=== PATIENT | female | born 2005 | race Caucasian/White ===

== ENCOUNTER 2025-07-09 06:28 | Outpatient (REF) | payer BC, SELFPAY ==
--- NOTE | ~2025-07-09 | US_ITS ---
EXAMINATION: US PELVIS TRANSABDOMINAL AND TRANSVAGINAL HISTORY: PELVIC PAIN COMPARISON: There are no prior studies available for comparison. TECHNIQUE: Transabdominal and endovaginal real-time 2D roldan-scale ultrasound was performed. FINDINGS: Uterus: The uterus is normal in size, measuring 7.7 x 3.9 x 5.3 cm. Myometrium has a normal echotexture. No fibroids are identified. Endometrium: The endometrial stripe measures 3 mm in thickness. An IUD is noted in expected position in the endometrial cavity. Right ovary: The right ovary measures 3.0 x 1.6 x 2.6 cm. The right ovary is normal in size and echotexture. Left ovary: The left ovary measures 2.4 x 1.5 x 1.3 cm. The left ovary is normal in size and echotexture. Pelvic fluid: none. US/US pelvic and transvaginal IMPRESSION: Unremarkable pelvic ultrasound. IUD in expected position in the endometrial cavity. Electronically signed by: Kvng Lemus MD 07/09/2025 12:39 PM EDT
--- OUTSIDE RECORDS SUMMARY | 2025-07-09 06:35 | XMS_ITS | Clinical Summary ---
Author Organization Formerly [facility] Address [address] [place] [address] Care Team Providers Care Insulation Extruder Operator Name Role Phone Elie Rivera MD Primary Care Provider [phone] Allergies No known active allergies Medications desogestrel-ethi nyl estradiol (Apri) 0.15-30 MG-MCG tablet Take 1 tablet by mouth 1 (one) time each day. 10/03/2020 Active Apri 0.15-30 MG-MCG tablet 08/12/2021 Activ e Active Problems No known active problems Encounters Date Type Department Care Team Description 04/16/2025 Telephone [facility] [address] [place] [id number] Evan Mayes PA 04/14/2025 Results Follow-Up [facility] [address] [place] [address] Tanja Moss PA Wound culture 04/12/2025 9:45 AM EDT Office Visit [facility] [address] [place] [address] Harpreet Brumfield, ERUM Blister (nonthermal), left thigh, initial encounter (Primary Dx) from Last 3 Months Family History Medical History Relation Comments No Known Problems Father No Known Problems Mother Relation Status Comments Father Alive Mother Alive Social History Tobacco Use Types Packs/Day Years Used Date Smoking Tobacco: Never Smokeless Tobacco: Never Tobacco Cessation:Counseling Given: Not Answered Alcohol Use Standard Drinks/Week Comments Yes 0 (1 standard drink = 0.6 oz pur e alcohol) occasional Comments No Sex and Gender Information Value Date Recorded Sex Assigned at Not on file Legal Sex Female 11:57 AM EST Gender Identity Not on file Sexual Orientation Not on file Last Filed Vital Signs Vital Sign Reading Time Taken Comments Blood Pressure 117/78 04/12/2025 9:55 AM EDT Pulse 77 04/12/2025 9:55 AM EDT Temperature 36.7 C (98.1 F) 04/12/2025 9:55 AM EDT Respiratory Rate 18 04/12/2025 9:55 AM EDT Oxygen Saturation 99% 04/12/2025 9:55 AM EDT Inhaled Oxygen Concentration - - Weight 70.3 kg (155 lb) 08/20/2021 9:36 AM EST Height - - Body Mass Index - - Plan of Treatment Health Maintenance Due Date Last Done Comments Hepatitis C Screening 2004 HIV Screening 2019 COVID-19 Vaccine ( season) 2025 06/10/2022, 09/17/2021, 02/06/2021, Additional history exists Influenza Vaccine (#1) 2025 , 06/10/2022, 06/04/2021, Additional history exists Annual Wellness Visit 08/07/2025 08/07/2024 , 08/03/2023, 06/10/2022, Additional history exists Chlamydia Screening 08/07/2025 08/07/2024, 08/03/2023, 06/04/2021 DTaP,Tdap,and Td Vaccines (7 - Td or Tdap) 03/04/2026 03/04/2016, 08/04/2009, 01/26/2006, Additional history exists Hepatitis B Vaccines Discontinued 01/25/2005, 2004, 2004 Pneumococcal Vaccine: Pediatrics (0 to 5 Years) and At-Risk Patients (6 to 64 Years) Aged Out 07/12/2005, 01/25/2005, 2004, Additional history exists No longer eligible based on patient's age to complete this topic HIB Vaccines Discontinued 09/22/2005, 01/10, 2004, Additional history exists MMR Vaccines Discontinued 08/04/2009, 09/22/2005 Varicella Vaccines Discontinued 08/04/2009, 07/12/2005 Hepatitis A Vaccines Discontinued 07/22/2015, 01/11/20 15 HPV Vaccines Completed 10/09/2018, 02/15/2018 Meningococcal Vaccine Completed 09/21/2022 , 06/10/2022, 06/04/2021, Additional history exists Procedures Procedure Name Priority Date/Time Associated Diagnosis Comments WOUND CULTURE Routine 04/12/2025 10:43 AM EDT from Last 3 Months Results * (ABNORMAL) Wound culture (04/12/2025 10:43 AM EDT) Wound Culture Rare skin dmitry 2024 7:55 AM EDT [facility] Wound Culture Rare Staphylococcus aureus(A) SAQIB 04/15/2025 7:55 AM EDT [facility] Gram Stain Result No WBCs 04/15/2025 7:55 AM EDT [facility] Gram Stain Result No Epithelial cells 04/15/2025 7:55 AM EDT [facility] Gram Stain Result No Organisms seen 04/15/2025 7:55 AM EDT [facility] Swab Structure of left thigh / Unknown Non-blood Collection / Unknown 04/12/2025 10:43 AM EDT 04/12/2025 2:16 PM EDT Narrative Organism Antibiotic Method Susceptibility Staphylococcus aureus Ciprofloxacin SAQIB <=0.5 ug/ml: Susceptible Staphylococcus aureus Clindamycin SAQIB <=0.25 ug/ml: Susceptible Staphylococcus aureus Erythromycin SAQIB <=0.25 ug/ml: Susceptible Staphylococcus aureus Gentamicin SAQIB <=0.5 ug/ml: Susceptible Staphylococcus aureus Inducible Clindamy humble Resistance SAQIB Negative ug/ml Staphylococcus aureus Levofloxacin SAQIB 0.25 ug/ml: Susceptible Staphylococcus aureus Oxacillin SAQIB 0.5 ug/ml: Susceptible Staphylococcus aureus Tetracycline SAQIB <=1 ug/ml: Susceptible Staphylococcus aureus Trimethoprim + Sulfamethoxazole SAQIB <=10 ug/ml: Susceptible Staphylococcus aureus Vancomycin SAQIB <=0.5 ug/ml: Susceptible us Harpreet Brumfield NP LAB MICROBIOLOGY - GENERAL OR DERABLES Final Result [address] [id number] from Last 3 Months Additional Health Concerns Infection Onset Date Last Indicated MSSA 04/12/2025 04/12/2025 Insurance PPO PPO Care Teams Insulation Extruder Operator Relationship Specialty Start Date End Date Elie Rivera MD [address] [id number] PCP - General Pediatrics 10/15/22
--- OUTSIDE RECORDS SUMMARY | 2025-07-09 06:35 | XMS_ITS | Clinical Summary ---
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 No recent episodes. Assessment & Plan (12/25/2020 8:54 PM EDT): Suspect cholinergic urticaria for itchy sometimes painful rash with too warm or too cool water in the shower, hot tubs, and when sweating during hot weather. Rash presents shortly after exposure and can last 1-2 hours. POCT hemoglobin was completed and normal, would expect high hemoglobin with polycythemia vera. Recommended starting 10 mg zyrtec or claritin daily to help with symptoms. Call in 2 weeks if no improvement with OTC medications or if significant worsening. Generalized anxiety disorder with panic attacks 03/24/2020 Overview (03/24/2020): An abrupt surge of intense discomfort that occurs from an anxious state that reaches a peak within minutes with SXS of panic attack and a persistent worry/concern about additional panic attacks occurring Assessment & Plan (08/07/2024 3:11 PM EST): Doing really well, out of therapy. Follow up PRN. Assessment & Plan (06/10/2022 9:41 AM EDT): Doing well, working with Lisette Azar every other week. Some irritability/stress still, but helped with self care measures. No SH/SI. Assessment & Plan (06/04/2021 10:42 AM EDT): Doing better with her anxiety, coping skills developed with Mohini Hickey. JEREMY is moderate and PHQ-9 mild with no SI/SH. Referred to Lisette Miller, for some counseling, as well. Assessment & Plan (05/15/2020 4:05 PM EDT): Much better control with anxiety after seeing mohini kilgore. Tension headache 11/23/2018 Assessment & Plan (11/23/2018 4:27 PM EDT): Patient reports headaches have been intermittent and occurring for several years. Denies worsening or changing with start of OCP. Pt denied migraine with aura/ongoing headaches at OCP initiation consult one month ago. Reviewed migraine with aura is a contraindication to estrogen based contraception. Headaches are likely related to insufficient water intake and not eating breakfast or lunch at school. Encouraged to increase water intake to about 3 L per day, begin eating breakfast and lunch, and to keep a headache journal. Take ibuprofen or tylenol prn. No red flags on HPI. Will remain pt on OCP due to headaches not presenting as migraine with aura, did not worsen with OCP initiation, and likely cause of insufficient fluids and morning food intake. Patient to call office if headaches are worsening or not improving with above plan. To d/c OCP if aura presents/headaches worsening. Vision checked today and wnl. Oral contraceptive pill surveillance 10/23/2018 Assessment & Plan (08/07/2024 3:12 PM EST): OCP is working well with no side effects. Cont as directed, disc missing pills, side effects. Rec condoms w/ all SA to protect against and STIs. Advised of risks including blood clots and depression, warning signs to discontinue OCP and seek immediate medical attention. F/U 1 yr for med check. Sooner if needed. When OCP refill is needed will send in 1 year supply after risk triage. Assessment & Plan (06/04/2021 9:43 AM EDT): HCG test negative. OCP is working well with no side effects. Few missed pills. Cont as directed, disc missing pills, side effects. Rec condoms w/ all SA to protect against and STIs. Advised of risks including blood clots and depression, warning signs to discontinue OCP and seek immediate medical attention. F/U 1 yr for med check. Sooner if needed. Assessment & Plan (05/15/2020 4:16 PM EDT): HCG test negative. OCP is working well with no side effects. Few missed pills. Cont as directed, disc missing pills, side effects. Rec condoms w/ all SA to protect against and STIs. Advised of risks including blood clots and depression, warning signs to discontinue OCP and seek immediate medical attention. F/U 1 yr for med check. Sooner if needed. Assessment & Plan (07/12/2019 2:15 PM EDT): Pt has not been taking OCP x 3 weeks, but was previously happy with method. Reviewed adverse effects of OCP including hypertension, VTE, stroke, and headaches. Advised to go to ER if calf swelling/tenderness. Discussed taking pill at the same time each day. Discussed if single pill is missed it may be taken as soon is noticed, to take next pill when it is due. Advised to call office for instruction if >1 pill is missed. Pt not currently SA. RTO if headaches/above adverse effects present. Provided refill, may f/u at next [facility]. Assessment & Plan (11/23/2018 4:26 PM EDT): Patient stable and happy with current method. Occasional headaches unchanged with start of OCP, no aura- see headache information below. Reviewed adverse effects of OCP including hypertension, VTE, stroke, and migraines. Advised to go to ER if calf swelling/tenderness. Discussed taking pill at the same time each day. Discussed if single pill is missed it may be taken as soon is noticed, to take next pill when it is due. Advised to call office for instruction if >1 pill is missed. Encouraged condom use for STI protection. RTO if headaches/above adverse effects present. Year supply given. To f/u in 1 year/next [facility]. Assessment & Plan (10/23/2018 10:11 AM EST): Pt to initiate OCP to regulate menses. Denies SA. Pt with no contraindications to beginning estrogen based OCP, denies smoking, denies migraine/migraine with aura, denies history of diabetes/hypertension/VTE/bleeding disorder/cirrhosis/breast cancer. Discussed side effects of OCP including breakthrough bleeding, nausea, and breast tenderness- advised symptoms typically subside in several months. Discussed adverse effects of OCP including hypertension, VTE, stroke, and headaches. Advised to go to ER if calf swelling/tenderness. Discussed taking pill at the same time each day. Discussed if single pill is missed it may be taken as soon is noticed, to take next pill when it is due. Advised to call office for instruction if >1 pill is missed. Will begin pt on quick-start method, pt informed to use backup method of control for first 7 days of use (denies SA). May take about 3 months to regulate menses. Encouraged condom use for STI protection. RTO if headaches/above adverse effects present. Pt to f/u in office in 1 month. Pt ok with plan. Mom aware of OCP initiation Resolved Problems Problem Noted Date Diagnosed Date Resolved Date Hyperhidrosis 08/03/2023 08/07/2024 Assessment & Plan (08/07/2024 3:11 PM EST): Improved. Mild now. Assessment & Plan (08/03/2023 9:22 AM EST): Start drysol to palms nightly until the sweating is under control. Happy to refer to Derm if she wants to address the sweating on face and scalp; would not use drysol on these areas. UTI (urinary tract infection) 09/21/2022 08/07/2024 Obesity 06/10/2022 06/10/2022 Dysmenorrhea 06/10/2022 08/07/2024 Assessment & Plan (08/03/2023 9:36 AM EST): Follows with Dr. Vogel for OCPs; having some sadness in the 4 days leading up to menses, did have a recent OCP switch to triphasic, encouraged to talk to her DENTAL DIRECTOR about this. Assessment & Plan (06/10/2022 10:47 AM EDT): Increased cramping, and heavier menses off OCP. Has DENTAL DIRECTOR appt in 1 week- planning to discuss at that point. Alcohol use 06/04/2021 06/10/2022 Assessment & Plan (06/04/2021 10:39 AM EDT): Occ drinking of ~4 drinks; dicussed this at length re: safety and risk for future substance use issues especially given FH of alcoholism. Pt agrees to see Lisette Azar, referred. Flat feet 07/12/2019 05/15/2020 Assessment & Plan (07/12/2019 2:17 PM EDT): Pt has flat feet bilaterally, she feels muscular soreness in her arches after softball practice in her cleats. Mom and Pt interested in orthotics. Dicussed trialing drug store inserts. They will let us know if they require referral to podiatry and we can place referral. Mom and Pt OK with plan. Brain concussion 06/25/2019 05/15/2020 Overview (07/12/2019): One lifetime concussion around age 9, fully recovered without sequelae. Disorder of shoulder 06/25/2019 020 Overview (07/12/2019): Previously followed by [facility] PT/ortho, follow up is now PRN. Has special stretches for shoulder at softball. History of epilepsy 06/25/2019 05/15/20 20 Overview (07/12/2019): Previously followed by Dr. Green. Diagnosed at age 2 with petit mal seizures (staring spells, vomiting, not remembering episodes), was on keppra BID until age 7. She had 3 seizures before medication, none on meds. Had EEGs twice per year. Now f/u is PRN. Irregular menses 10/23/2018 05/15/2020 Assessment & Plan (07/12/2019 2:12 PM EDT): When not on OCP has 2 periods per month, when on OCP she has regular monthly menses. Advised to re-start OCP after this current menses to help regulate. Assessment & Plan (10/23/2018 10:09 AM EST): No red flags on exam or in HPI. Will trial OCP initiation to regulate. Labs/DENTAL DIRECTOR later if needed. Plantar wart 06/23/2018 07/12/2019 Assessment & Plan (06/23/2018 3:33 PM EDT): Consent of mother and pt obtained prior to procedure: blade used to shave down overlying skin to warts, Freeze-Off then applied to each wart. Discussed viral etiology of plantar warts, may take several months-year to resolve. Advised Freeze-Off q 2 weeks and daily Compound W pads. May wrap warts in duct tape for further relief. RTO if difficulty ambulating or continue to spread/increase in size- will consider podiatry. Mom and pt ok with plan. Screening for iron deficiency anemia 05/18/2018 07/12/2019 Assessment & Plan (05/18/2018 1:08 PM EDT): Mildly low Hb in office today (11.5). Will verify with venous draw. Will call with results and tx accordingly. Other proteinuria 05/18/2018 07/12/2019 Assessment & Plan (05/18/2018 1:08 PM EDT): Urine collection cup given for repeat first void UA in 1-2 weeks. 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 05/18/2018 Petit mal status 01/25/2018 05/18/2018 Ligamentous laxity of right shoulder 01/25/2018 05/18/2018 Biceps strain, right, initial encounter 01/25/2018 05/18/2018 Immunizations Immunization Administration Dates Next Due COVID-19 Pfizer, bivalent, 12+ years 06/10/2022 COVID-19 Pfizer, monovalent, 12+ years 2 DTaP / Hep B / IPV 01/25/2005,2004, 004 DTaP, Unspecified 08/04/2009,01/26/2006 H1N1 10/30/2009,07/18/2009 HPV Vaccine 9 Valent 10/09/2018,02/15/2018 Hep A, ped/adol 07/22/2015,01/10/2015 HiB 09/22/2005, 5,2004,09/09 IPV 08/04/2009 Influenza 07/18/2009, 8,07/31/2007,07/11 Influenza, injectable, quadrivalent 08/03/2023 Influenza, injectable, quadr ivalent, preservative free 06/10/2022,06/04/2021,05/15/2020,07/12 Influenza, injectable, trivalent 08/12/2011 Influenza, intranasal, quadrivalent 07/22/2015 MMR 08/04/2009,09/22/2005 Meningococcal B Bexsero 09/21/2022,06/10/2022 Meningococcal Conj (Menactra) MCV4P 06/04/2021,0 03/04/2016 Pneumococcal Conjugate 07/12/2005,2004,2004,09/09 Polio 08/04/2009 Tdap 03/04/2016 Varicella 08/04/2009,07/12/2005 Family History Medical History Relation Name Comments No Known Problems Father No Known Problems Mother No Known Problems Sister Relation Name Status Comments Father Hypercholestero lemia Mother Multiple sclero sis Sister Social History Tobacco Use Types Packs/Day Years Used Date Smoking Tobacco: Never Comments:Never Hunger/Food Answer Date Recorded In the last 12 months, did y ou or your family ever eat less than you felt you should because there wasn't enough money for food? No 08/07/2024 Stable Housing Answer Date Recorded Are you worried that in the next 2 months you may not have stable housing? No 08/07/2024 Transportation Concerns Answer Date Rec orded In the last 12 months, have you or your family ever had to go without healthcare because you didn't have a way to get there? No 08/07/2024 Hazards in Home Answer Date Recorded Think about the place you li ve. Do you have problems with any of the following? Pests (mice or roaches), mold, no/not working smoke detectors, water leaks, no window guards. No 2023 Financing Utilities Answer Date Recorde d In the last 12 months, has t he electric, gas, oil, or water company threatened to shut off your services in your home? No 08/07/2024 Safety at Home Answer Date Recorded Are you or your family worried about feeling saf e in your home? No 08/07/2024 Outside Support Answer Date Recorded Do you feel that you need mo re support from other people or programs to help you care for yourself or your family? No 08/07/2024 Understanding Health Concerns Answer Da te Recorded Do you need help understandi ng your or your child's healthcare needs (diagnosis, medications, plan, etc.)? No 08/07/2024 Financing Health Concerns Answer Date R ecorded In the last 12 months, was t here a time when your child needed to see a doctor or get medications or supplies but could not because of cost? No 08/07/2024 Missing School or Work Answer Date Michael rded Did you or your child miss s chool or work because of a health problem that could have been avoided? No 08/07/2024 Child Education Answer Date Recorded Do you have concerns about y our/your child's learning or behavior in school, preschool, or daycare? No 08/07/2024 Comments Unknown Sex and Gender Information Value Date Recorded Sex Assigned at Not on file Legal Sex Female 12:08 PM EST Gender Identity Not on file Sexual Orientation Straight 05/15/2020 4: 08 PM EDT Last Filed Vital Signs Vital Sign Reading Time Taken Comments Blood Pressure 118/70 08/07/2024 1:37 PM EST Pulse 97 08/07/2024 1:37 PM EST Temperature 36.7 C (98 F) 08/30/2022 3:41 PM EST Respiratory Rate - - Oxygen Saturation 100% 08/07/2024 1:37 PM EST Inhaled Oxygen Concentration - - Weight 79.4 kg (175 lb 2 oz) 08/07/2024 1:37 PM EST Height 163.2 cm (5' 4.25 ) 08/07/2024 1:37 PM ES T Body Mass Index 29.83 08/07/2024 1:37 PM EST Plan of Treatment Upcoming Encounters Date Type Department Care Team (Late st Contact Info) Description 08/06/2025 9:30 AM EST Office Visit [facility] [address] [place] [address] Yuki Cotto, ERUM [address] [place] [address] Health Maintenance Due Date Last Done Comments HIV Screening 2019 Hepatitis C Screening 2022 Chlamydia and Gonorrhea Screening 09/12/2024 08/07/2024, 08/03/2023, 06/10/2022, Additional history exists Influenza Vaccines (#1) 2025 08/03/20, 06/10/2022, 06/04/2021, Additional history exists COVID-19 Vaccine (5 - 2024- 6 season) 2025 06/10/2022, 09/17/2021, 02/06/2021, Additional history exists DTaP,Tdap,and Td Vaccines (7 - Td or Tdap) 03/04/2026 03/04/2016, 08/04/2009, 01/26/2006, Additional history exists Hepatitis B Vaccines Completed 01/25/2005, 2004, 2004 Pneumococcal Vaccine Completed 07/12/2005, 01/25/2005, 2004, Additional history exists HIB Vaccines Completed 09/22/2005, 01/10, 2004, Additional history exists IPV Vaccines Completed 08/04/2009, 07/14, 01/25/2005, Additional history exists MMR Vaccines Completed 08/04/2009, 09/22/2005 Varicella Vaccines Completed 08/04/2009, 07/12/2005 Hepatitis A Vaccines Completed 07/22/2015, 01/11/20 15 HPV Vaccines Completed 10/09/2018, 02/15/2018 Meningococcal Vaccine Completed 06/04/2021, 016 Men B Vaccine Completed 09/21/2022, 06/10/2022 Procedures * Due to [place] [employer] law, this organization might not be sharing sensitive test results. Procedure Name Priority Date/Time Associated Diagnosis Comments CHLAMYDIA AND GONORRHEA, AMPLIFIED Routine 08/07/2024 1:46 PM EST Encounter for screening examination for sexually transmitted disease from Last 3 Months or Most Recently Relevant to Health Maintenance Results * Due to [place] [employer] law, this organization might not be sharing sensitive test results. * Chlamydia and Gonorrhoea, Amplified (08/07/2024 1:46 PM EST) Chlamydia trachomatis RNA, TMA NOT DETECTED NOT DETECTED [facility] Neisseria gonorrhoeae, MARIANA NOT DETECTED NOT DETECTED [facility] Comment [facility] Comment: The analytical performance characteristics of this assay, when used to test SurePath(TM) specimens have been determined by [employer] The modifications have not been cleared or approved by the FDA. This assay has been validated pursuant to the CLIA regulations and is used for clinical purposes. For additional information, please refer to https://education.Not iT/faq/NJE094 (This link is being provided for information/ educational purposes only.) Urine (Urine) 08/07/2024 1:4 6 PM EST 08/08/2024 9:28 AM EST Narrative Resulting Agency Comment Performing Organization Information: Site ID: [id number] Name: [facility] Address: [address] [place] [id number] Director: Jonah De La Paz Yuki Cotto NP LAB MICROBIOLOGY - GENERAL ORDER FORTINO Final Result [facility] from Last 3 Months or Most Recently Relevant to Health Maintenance Insurance [place] [id number] [facility] [id number] [facility] PPO [facility] PPO Care Teams Spring Tester Relationship Specialty Start Date End Date Yuki Cotto NP [address] [place] [address] PCP - General Pediatrics 06/09/22
--- OUTSIDE RECORDS SUMMARY | 2025-07-09 06:35 | XMS_ITS | Encounter Summary ---
Author Organization [facility] Address [address] [place] [address] Phone Care Team Providers Care Credentialing Assistant Name Role Phone Yuki Cotto NP Primary Care Provider [phone] Reason for Visit * Reason Onset Date Comments Med Refill 11/09/2020 Encounter Details Date Type Department Care Team (Late st Contact Info) Description 11/09/2020 Refill [facility] [place] [address] [place] [address] Martha Emerson MD [address] [place] [address] Oral contraceptive pill surveillance Social History Tobacco Use Types Packs/Day Years Used Date Smoking Tobacco: Never Comments:Never Hunger/Food Answer Date Recorded In the last 12 months, did y ou or your family ever eat less than you felt you should because there wasn't enough money for food? No 05/15/2020 Stable Housing Answer Date Recorded Are you worried that in the next 2 months you may not have stable housing? No 05/15/2020 Transportation Concerns Answer Date Rec orded In the last 12 months, have you or your family ever had to go without healthcare because you didn't have a way to get there? No 05/15/2020 Hazards in Home Answer Date Recorded Think about the place you li ve. Do you have problems with any of the following? Pests (mice or roaches), mold, no/not working smoke detectors, water leaks, no window guards. No 2019 Financing Utilities Answer Date Recorde d In the last 12 months, has t he electric, gas, oil, or water company threatened to shut off your services in your home? No 05/15/2020 Safety at Home Answer Date Recorded Are you or your family worried about feeling saf e in your home? No 05/15/2020 Outside Support Answer Date Recorded Do you feel that you need mo re support from other people or programs to help you care for yourself or your family? No 05/15/2020 Understanding Health Concerns Answer Da te Recorded Do you need help understandi ng your or your child's healthcare needs (diagnosis, medications, plan, etc.)? No 05/15/2020 Financing Health Concerns Answer Date R ecorded In the last 12 months, was t here a time when your child needed to see a doctor or get medications or supplies but could not because of cost? No 05/15/2020 Missing School or Work Answer Date Michael rded Did you or your child miss s chool or work because of a health problem that could have been avoided? No 05/15/2020 Comments Unknown Sex and Gender Information Value Date Recorded Sex Assigned at Not on file Legal Sex Female 12:08 PM EST Gender Identity Not on file Sexual Orientation Straight 05/15/2020 4: 08 PM EDT documented as of this encounter Plan of Treatment Upcoming Encounters Date Type Department Care Team (Late st Contact Info) Description 08/06/2025 9:30 AM EST Office Visit [facility] [place] [address] [place] [address] Yuki Cotto NP [address] [place] [address] documented as of this encounter Visit Diagnoses Diagnosis Oral contraceptive pill surveillance documented in this encounter Care Teams Credentialing Assistant Relationship Specialty Start Date End Date Yuki Cotto NP [address] [place] [address] PCP - General Pediatrics 06/09/22 documented as of this encounter
--- OUTSIDE RECORDS SUMMARY | 2025-07-09 06:35 | XMS_ITS | Encounter Summary ---
Author Organization [facility] Address [address] [place] [address] Phone Care Team Providers Care Supervisor Motor Vehicle Assembly Name Role Phone Yuki Cotto NP Primary Care Provider [phone] Reason for Visit * Reason Comments Med Refill Encounter Details Date Type Department Care Team (Late st Contact Info) Description 10/11/2021 Refill [facility] [place] [address] [place], [place] [id number] Valerie Chanel NP [address] [place] [address] Oral contraceptive pill surveillance Social History Tobacco Use Types Packs/Day Years Used Date Smoking Tobacco: Never Comments:Never Hunger/Food Answer Date Recorded In the last 12 months, did y ou or your family ever eat less than you felt you should because there wasn't enough money for food? No 06/04/2021 Stable Housing Answer Date Recorded Are you worried that in the next 2 months you may not have stable housing? No 06/04/2021 Transportation Concerns Answer Date Rec orded In the last 12 months, have you or your family ever had to go without healthcare because you didn't have a way to get there? No 06/04/2021 Hazards in Home Answer Date Recorded Think about the place you li ve. Do you have problems with any of the following? Pests (mice or roaches), mold, no/not working smoke detectors, water leaks, no window guards. No 2020 Financing Utilities Answer Date Recorde d In the last 12 months, has t he electric, gas, oil, or water company threatened to shut off your services in your home? No 06/04/2021 Safety at Home Answer Date Recorded Are you or your family worried about feeling saf e in your home? No 06/04/2021 Outside Support Answer Date Recorded Do you feel that you need mo re support from other people or programs to help you care for yourself or your family? No 06/04/2021 Understanding Health Concerns Answer Da te Recorded Do you need help understandi ng your or your child's healthcare needs (diagnosis, medications, plan, etc.)? No 06/04/2021 Financing Health Concerns Answer Date R ecorded In the last 12 months, was t here a time when your child needed to see a doctor or get medications or supplies but could not because of cost? No 06/04/2021 Missing School or Work Answer Date Michael rded Did you or your child miss s chool or work because of a health problem that could have been avoided? No 06/04/2021 Comments Unknown Sex and Gender Information Value Date Recorded Sex Assigned at Not on file Legal Sex Female 12:08 PM EST Gender Identity Not on file Sexual Orientation Straight 05/15/2020 4: 08 PM EDT documented as of this encounter Plan of Treatment Upcoming Encounters Date Type Department Care Team (Late st Contact Info) Description 08/06/2025 9:30 AM EST Office Visit [facility] [place] [address] [place] [address] Yuki Cotto NP [address] [place] [address] documented as of this encounter Visit Diagnoses Diagnosis Oral contraceptive pill surveillance documented in this encounter Care Teams Supervisor Motor Vehicle Assembly Relationship Specialty Start Date End Date Yuki Cotto NP [address] [place] [address] PCP - General Pediatrics 06/09/22 documented as of this encounter
--- OUTSIDE RECORDS SUMMARY | 2025-07-09 06:35 | XMS_ITS | Clinical Summary ---
Author Organization [facility] Address [address] [place] [address] Phone Care Team Providers Care Foreign Banknote Teller Name Role Phone Elie Rivera MD Primary Care Provider [phone] Allergies No known active allergies Medications [id number] 0.18/0.215/0.25 mg-25 mcg Tab 05/30/2023 Activ e Immunizations Immunization Administration Dates Next Due DTaP, unspecified formulation 08/04/2009, 006 DTaP-Hep B-IPV 01/25/2005,2004,2004 [id number] FORMULATION 10/30/2009,02/2009 Hib, unspecified formulation 09/22/2005, 01/25/2005,2004,09/09/20 04 Influenza, Unspecified Formulation 07/18,08/02/2008,07/31/2007,07/11/20 06 MMR 08/04/2009,09/22/2005 Pneumococcal conjugate, PCV 7 07/12/2005 ,01/25/2005,2004,09/09/20 04 Polio, Unspecified Formulation 08/04/2009 Varicella 08/04/2009,07/12/2005 Social History Tobacco Use Types Packs/Day Years Used Date Smoking Tobacco: Never Assessed Education Answer Date Recorded Are you interested in more education? Not on cecilia e 01/16/2023 Are you concerned about learning? Not on file 01/16/2023 No 01/16/2023 No 01/16/2023 Digital Access Answer Date Recorded No 02/06/2023 No 02/06/2023 No 02/06/2023 Reliable internet access at home? Not on file 02/06/2023 Device with a working camera? Not on file Comments Unknown Sex and Gender Information Value Date Recorded Sex Assigned at Not on file Legal Sex Female 6:45 PM EST Gender Identity Not on file Sexual Orientation Not on file Last Filed Vital Signs Vital Sign Reading Time Taken Comments Blood Pressure 132/82 06/02/2023 2:45 PM EDT Pulse 80 06/02/2023 2:45 PM EDT Temperature 36.6 C (97.8 F) 06/02/2023 2:45 PM EDT Respiratory Rate 18 06/02/2023 2:45 PM EDT Oxygen Saturation 100% 06/02/2023 2:45 PM EDT Inhaled Oxygen Concentration - - Weight 20.2 kg (44 lb 8 oz) 08/04/2009 4:[address] Height 110.5 cm (3' 7.5 ) 08/04/2009 4:03 PM EST Body Mass Index 16.53 08/04/2009 4:03 PM EST Plan of Treatment Health Maintenance Due Date Last Done Comments DEVELOPMENTAL/BEHAVIORAL SCREENING (PHQ, PSC, or SWYC) 2007 DEPRESSION SCREENING 2016 SMOKING Hx and SMOKELESS TOBACCO SCREENING 2017 CHLAMYDIA SCREENING 2020 MENINGOCOCCAL VACCINES (B) (1 of 2 - Standard) 2020 ADOLESCENT UNIVERSAL LIPID SCREENING 2021 HEPATITIS C SCREENING 2022 HIV ONE-TIME SCREENING (18-65 YEARS) 2022 INFLUENZA VACCINE (#1) 2025 , 07/12/2019, 07/22/2015, Additional history exists COVID-19 VACCINE (2 - 2024- season) 2025 01/16/2021 COMBINED DTaP,Tdap,Td (7 - Td or Tdap) 03/04/2026 03/04/2016, 08/04/2009, 01/26/2006, Additional history exists PNEUMOCOCCAL VACCINES (0-49 years) Aged Out 07/12/2005, 01/25/2005, 2004, Additional history exists No longer eligible based on patient's age to complete this topic HIB VACCINES Completed 09/22/2005, 01/10, 2004, Additional history exists MMR VACCINES Completed 08/04/2009, 09/22/2005 VARICELLA VACCINES Completed 08/04/2009, 07/12/2005 HEPATITIS A VACCINES Completed 07/22/2015, 01/11/20 15 MENINGOCOCCAL VACCINES (ACWY) Aged Out 03/04/2016 No longer eligible based on patient's age to complete this topic HPV VACCINES Completed 10/09/2018, 02/15/2018 Medical Devices Not on [place] [address] [facility] [place] [address] [facility] PPO EPO Har[place] [address] [place] [address] [facility] [place] [place] [address] [facility] [place] [address] [facility] PPO EPO Care Teams Foreign Banknote Teller Relationship Specialty Start Date End Date Elie Rivera MD [address] [place] [address] PCP - General Pediatrics 06/02/23 Additional Source Comments The information contained in this document represents components of the legal health record. It is not the complete legal health record.[facility]
--- OUTSIDE RECORDS SUMMARY | 2025-07-09 06:35 | XMS_ITS | Encounter Summary ---
Author Organization [facility] Address [address] [place] [address] Phone Care Team Providers Care Substance Abuse Therapist Name Role Phone Yuki Cotto NP Primary Care Provider [phone] Encounter Details Date Type Department Care Team (Late st Contact Info) Description 11/10/2017 Conversion Encounter [facility] [address] [place] [address] Elie Rivera MD Social History Tobacco Use Types Packs/Day Years Used Date Smoking Tobacco: Never Comments:Never Comments Unknown Sex and Gender Information Value Date Recorded Sex Assigned at Not on file Legal Sex Female 12:08 PM EST Gender Identity Not on file Sexual Orientation Straight 05/15/2020 4: 08 PM EDT documented as of this encounter Plan of Treatment Upcoming Encounters Date Type Department Care Team (Late st Contact Info) Description 08/06/2025 9:30 AM EST Office Visit [facility] [address] [place] [address] Yuki Cotto NP [address] [place] [address] documented as of this encounter Visit Diagnoses Not on filedocumented in this encounter Care Teams Substance Abuse Therapist Relationship Specialty Start Date End Date Yuki Cotto NP [address] [place] [address] PCP - General Pediatrics 06/09/22 documented as of this encounter
--- OUTSIDE RECORDS SUMMARY | 2025-07-09 06:35 | XMS_ITS | Clinical Summary ---
Author Organization [facility] Address [address] [place] [address] Phone Care Team Providers Care Commercial Front Load Driver Name Role Phone Elie Rivera MD Primary Care Provider [phone] Elie Rivera MD Unavailable [phone] Elie Rivera MD Unavailable [phone] Social History Tobacco Use Types Packs/Day Years Used Date Smoking Tobacco: Never Assessed Comments Unknown Sex and Gender Information Value Date Recorded Sex Assigned at Not on file Legal Sex Female 7:50 PM EDT Gender Identity Not on file Sexual Orientation Not on file Last Filed Vital Signs Vital Sign Reading Time Taken Comments Blood Pressure - - Pulse - - Temperature - - Respiratory Rate - - Oxygen Saturation - - Inhaled Oxygen Concentration - - Weight 61.3 kg (135 lb 2.3 oz) 03/09/2018 1:21 P M EDT Height 162 cm (5' 3.78 ) 03/09/2018 1:21 PM EDT Body Mass Index 23.36 03/09/2018 1:21 PM EDT Plan of Treatment Health Maintenance Due Date Last Done Comments Chlamydia and Gonorrhea Screening 2004 HIV Screening 2004 Anemia Screening 2016 Hepatitis C Screening 2022 Influenza Vaccine (#1) 2025 , 06/10/2022, 06/04/2021, Additional history exists DTaP/Tdap/Td Vaccines (7 - Td or Tdap) 03/04/2026 03/04/2016, 08/04/2009, 01/26/2006, Additional history exists Hepatitis B Vaccines Completed 01/25/2005, 2004, 2004 Pneumococcal Vaccine: Pediatrics (0 to 5 Years) and At-Risk Patients (6 to 49 Years) Aged Out 07/12/2005, 01/25/2005, 2004, Additional history exists No longer eligible based on patient's age to complete this topic HIB Vaccines Completed 09/22/2005, 01/10, 2004, Additional history exists IPV Vaccines Completed 08/04/2009, 01/10, 2004, Additional history exists MMR Vaccines Completed 08/04/2009, 09/22/2005 Varicella Vaccines Completed 08/04/2009, 07/12/2005 Hepatitis A Vaccines Completed 07/22/2015, 01/11/20 15 HPV Vaccines Completed 10/09/2018, 02/15/2018 Meningococcal Vaccine Completed 06/04/2021, 016 Meningococcal B Vaccine Completed 09/21/2022, 06/10 Rotavirus Vaccines Aged Out No longer eligible based on patient's age to complete this topic Insurance [employer] - [facility] Care Teams Commercial Front Load Driver Relationship Specialty Start Date End Date Elie Rivera MD [address] [place] [address] PCP - General 01/31/15 Elie Rivera MD [address] [place] [address] PCP - Clinical PCP 01/31/15 Elie Rivera MD [address] [place] [address] PCP - Insurance PCP 01/31/15
== END 2025-07-09 06:29 | disposition home or self-care (01) ==
LOC: HO.UMASIMG 06:28
PROVIDERS: Visit Provider Family Medicine
DX: R10.20 Pelvic and perineal pain unspecified side (principal)
CPT/HCPCS: 76830; 76856

== ENCOUNTER → 2025-07-09 10:50 | Outpatient (BNV) | payer BC, SELFPAY | PROVIDERS: Visit Provider Radiology Diagnostic Radiology | DX: R10.20 Pelvic and perineal pain unspecified side (principal); Z97.5 Presence of (intrauterine) contraceptive device | CPT/HCPCS: 76830; 76856 ==